=== PATIENT | female | born 1965 | race African-American/Black ===

== ENCOUNTER 2020-06-08 07:36 | Outpatient (CLI) | payer OTHER, SELFPAY ==
--- NOTE | 2020-06-09 12:00 | NEURO_ITS ---
Impression: # Complains of leg pain and back pain with numbness. # Normal nerve conduction study. # Normal needle/EMG exam. # Clinical correlation recommended. Nerve Conduction Studies Anti Sensory Summary Table Stim Site NR Peak (ms) P-T Amp (?V) Site1 Site2 Delta-P (ms) Dist (cm) Hugo (m/s) Left Sup Fibular Anti Sensory (Ant Lat Mall) 14 cm 3.9 5.5 14 cm Ant Lat Mall 3.9 16.0 41 Right Sup Fibular Anti Sensory (Ant Lat Mall) 14 cm 3.7 10.7 14 cm Ant Lat Mall 3.7 16.0 43 Left Sural Anti Sensory (Lat Mall) Calf 3.8 11.7 Calf Lat Mall 3.8 16.0 42 Right Sural Anti Sensory (Lat Mall) Calf 3.9 18.7 Calf Lat Mall 3.9 16.0 41 Motor Summary Table Stim Site NR Onset (ms) O-P Amp (mV) Site1 Site2 Delta-0 (ms) Dist (cm) Hugo (m/s) Left Peroneal Motor (Vastus Med) Ankle 3.5 2.8 Popit Ankle 7.4 38.0 51 Popit 10.9 2.0 Right Peroneal Motor (Vastus Med) Ankle 3.7 3.4 Popit Ankle 7.2 37.0 51 Popit 10.9 2.9 Left Tibial Motor (Abd Mcghee Brev) Ankle 4.3 5.3 Knee Ankle 8.7 39.0 45 Knee 13.0 3.4 Right Tibial Motor (Abd Mcghee Brev) Ankle 4.4 2.8 Knee Ankle 7.7 39.0 51 Knee 12.1 1.8 F Wave Studies NR F-Lat (ms) L-R F-Lat (ms) Left Peroneal (Mrkrs) (EDB) 47.93 0.59 Right Peroneal (Mrkrs) (EDB) 47.34 0.59 Left Tibial (Mrkrs) (Abd Hallucis) 47.98 0.38 Right Tibial (Mrkrs) (Abd Hallucis) 47.60 0.38 EMG Side Muscle Nerve Root Ins Act Fibs Amp Dur Recrt Comment Right AntTibialis Dp Br Fibular L4-5 Nml Nml Nml Nml Nml Right Gastroc Tibial S1-2 Nml Nml Nml Nml Nml Right Fibularis Long Sup Br Fibular L5-S1 Nml Nml Nml Nml Nml Right Flex Dig Long Tibial L5-S2 Nml Nml Nml Nml Nml Right Ext Dig Brev Dp Br Fibular L5, S1 Nml Nml Nml Nml Nml Left AntTibialis Dp Br Fibular L4-5 Nml Nml Nml Nml Nml Left Gastroc Tibial S1-2 Nml Nml Nml Nml Nml Left Fibularis Long Sup Br Fibular L5-S1 Nml Nml Nml Nml Nml Left Flex Dig Long Tibial L5-S2 Nml Nml Nml Nml Nml Left Ext Dig Brev Dp Br Fibular L5, S1 Nml Nml Nml Nml Nml MTDD
== END 2020-06-08 07:37 | disposition home or self-care (01) ==
PROVIDERS: PCP Internal Medicine Infectious Disease; Visit Provider Internal Medicine Infectious Disease
DX: G62.9 Polyneuropathy, unspecified (principal)
CPT/HCPCS: 95886; 95910